=== PATIENT | female | born 1970 | race Caucasian/White ===

== ENCOUNTER 2023-04-11 12:18 | Outpatient (REF) | payer MEDICARE, MEDICAID, SELFPAY ==
[2023-04-11 21:08] LABS: TSH (W/Ref FT4) 0.57 uIU/mL (0.36-3.74)
== END 2023-04-11 12:19 | disposition home or self-care (01) ==
LOC: LBN 12:18
PROVIDERS: Visit Provider Nurse Practitioner Family
DX: E03.9 Hypothyroidism, unspecified (principal)
CPT/HCPCS: 84443

== ENCOUNTER 2023-04-13 17:41 | Emergency (ER) | payer MEDICARE, MEDICAID, SELFPAY ==
[2023-04-13 17:45] VITALS: BP 121/83; PULSE 70; RESP 18; TEMP 36.2; O2SAT 97
--- NOTE | 2023-04-13 18:16 | ED.GENADUL_ITS ---
Discharge Plan Disposition Patient Disposition: Home Condition: Stable Discharge Details Clinical Impression: Difficulty refilling prescriptions Primary Care Provider: None,None ED Provider: Jason Harrison Home Meds and New Rx's Prescriptions: New levothyroxine 75 mcg capsule 75 mcg PO DAILY Qty: 30 0RF Continued quetiapine [Seroquel] 400 mg tablet 800 mg PO BID paroxetine HCl [Paxil] 20 mg tablet 20 mg PO DAILY gabapentin 300 mg capsule 300 mg PO BID bupropion HCl [Wellbutrin XL] 300 mg tablet extended release 24 hr 300 mg PO QAM omeprazole 40 mg capsule,delayed release(DR/EC) 40 mg PO BID levothyroxine 75 mcg capsule 75 mcg PO DAILY Qty: 30 1RF clonidine HCl 0.1 mg tablet 0.1 mg PO DAILY Patient Comments: Approximated dose and name. Patient is unsure. Discharge Instructions Instructions: Levothyroxine (By mouth) Additional Instructions: You were seen in the emergency department for your request for refill on your levothyroxine I have sent a refill for a month supply to [facility] in [place]. I have placed you on a list to establish primary care in the area. Please call and follow-up if you have not heard, have also forwarded your chart to care management for help with establishing care in the area. Referrals: Care Management [Provider Group] [facility] [Provider Group] Medical Decision Making This dictation utilizes [id number] dictation software and may contain unedited grammatical errors. 53 y/o M presents to ED today with a chief complaint of request for medication refill. Patient ran out of levothyroxine 5 days ago, doesn't have PCP established in the area. Patients' medical history: hypothyroidism. Family and social history: noncontributory. Pertinent exam findings / vital signs include benign respiratory status, no physical complaints. Diagnostic studies of: -none. Interventions of: - outpatient Rx, refer to establish PCP. ED Course/Assessment/Plan: Refilled levothyroxine 1 month supply to [facility], referred patient to PCP intake list. Findings not consistent with medical emergency. Disposition of Difficulty Refilling Prescriptions. Patient verbalized understanding of the plan and return to ED criteria and engaged in shared decision making. Medical Records Medical records reviewed: Yes I reviewed the patient's medical records. HPI General Date/Time Provider Initiated Documentation: 04/13/23 18:07 . HPI Narrative: 53 year-old female presents to ED today by POV/ambulating with a chief complaint of request for refill of Levothyroxine- states just moved to the area - has been out of this medicine for 5 days. Quality described as no other complaints, no radiation to fever, cough, shortness of breath, chest pain. Severity is described as 0/10. Palliating factors include nothing specific. Provoking factor s include nothing specific. Events leading up to the incident/Associated Symptoms: Patient would like help in establishing primary care. Patient not anticoagulated. Related Data Home Medications Medication Instructions Recorded Confirmed bupropion HCl 300 mg 24 hr tablet, 300 mg PO QAM 04/11/23 04/13/23 extended release (Wellbutrin XL) gabapentin 300 mg capsule 300 mg PO BID 04/11/23 04/13/23 omeprazole 40 mg capsule,delayed 40 mg PO BID 04/11/23 04/13/23 release paroxetine HCl 20 mg tablet (Paxil) 20 mg PO DAILY 04/11/23 04/13/23 quetiapine 400 mg tablet (Seroquel) 800 mg PO BID 04/11/23 04/13/23 clonidine HCl 0.1 mg tablet 0.1 mg PO DAILY 04/13/23 04/13/23 levothyroxine 75 mcg capsule 75 mcg PO DAILY #30 caps 04/13/23 04/13/23 levothyroxine 75 mcg capsule 75 mcg PO DAILY hypothyroidism #30 04/13/23 caps Previous Rx's Medication Instructions Recorded levothyroxine 75 mcg capsule 75 mcg PO DAILY #30 caps 04/13/23 levothyroxine 75 mcg capsule 75 mcg PO DAILY hypothyroidism #30 04/13/23 caps Allergies Allergy/AdvReac Type Severity Reaction Status Date / Time No Known Allergies Allergy Verified 04/11/23 11:20 General Stated Complaint: RX Refill TOM: 5 Review of Systems All systems reviewed & are unremarkable except as noted in HPI and below PFSH All Active Problems (Updated 04/13/23 @ 18:20 by ANGEL Kearney) Difficulty refilling prescriptions (Acute) Social History Smoking risk assessment performed?: No Do you feel safe at home: Yes Do you feel safe in your relationship?: Yes Exam Narrative Exam Narrative: GENERAL APPEARANCE: Well-nourished, non-toxic, awake and alert, atraumatic, no acute distress. SKIN: Warm, pink, dry, intact, without rashes/lesions/ulcerations. HEAD: Normocephalic, atraumatic, normal hair distribution for gender/age. EYES: Pupils PERRLA, EOMs intact without nystagmus, normal conjunctiva, no exudates on lids/lashes. ENT: Nares patent, no circumoral cyanosis, no facial swelling NECK: Supple, trachea midline, painless cervical ROM. LUNGS/CHEST: Non-labored respirations, normal A/P diameter, symmetrical expansion, no chest wall deformity HEART (CV/PV): No peripheral edema, no JVD. ABDOMEN: Soft, non-distended, no guarding. MSK: Normal ROM, no swelling/deformity to bilateral UEs or LEs, moving all extremities without weakness, no cyanosis, spine midline without tenderness, normal curvature. NEURO: Mental Status AAOx4 - alert to person, place, time, events No facial droop, no forehead involvement. Motor: No focal weakness - strength 5/5 in bilateral UEs and LEs, proximal and distal, symmetric. Sensory: sensation intact to light touch globally. Gait normal: patient ambulated without ataxia into ED room. PSYCH: euthymic, cooperative, pleasant, appropriate speech Course Vital Signs Vital signs: Vital Signs Temperature 36.2 C L 04/13/23 17:45 Pulse 70 04/13/23 17:45 Respiratory Rate 18 04/13/23 17:45 Blood Pressure 121/83 04/13/23 17:45 Pulse Oximetry 97 04/13/23 17:45 Temperature 36.2 C L 04/13/23 17:45 Temperature Source Tympanic 04/13/23 17:45 Pulse 70 04/13/23 17:45 Respiratory Rate 18 04/13/23 17:45 Blood Pressure 121/83 04/13/23 17:45 Pulse Oximetry 97 04/13/23 17:45 Oxygen Delivery Method Room Air 04/13/23 17:45 Oxygen Flow Rate 0 04/13/23 17:45
--- NOTE | 2023-04-13 18:28 | NUR.NOTE ---
Referral given to [facility] to help Establish Primary Care as soon as possible
== END 2023-04-13 18:30 | disposition home or self-care (01) ==
PROVIDERS: Emergency Provider Physician Assistant
DX: Z76.0 Encounter for issue of repeat prescription (principal); E03.9 Hypothyroidism, unspecified
CPT/HCPCS: 99281

== ENCOUNTER 2023-06-22 11:51 | Emergency (ER) | payer OTHER, SELFPAY ==
[2023-06-22 11:57] VITALS: BP 133/89; PULSE 65; RESP 16; TEMP 36.5; O2SAT 96
--- NOTE | 2023-06-22 12:00 | RT.EKG_ITS ---
APPROVED REPORT Exam: Resting ECG Reason for Exam: fatigue Patient Location: E HR:58 bpm ECG Measurements Heart Rate 58 AXIS RI 172 P 30 QRSd 101 QRS -27 QT 429 T -17 QTc 421 Conclusion Sinus bradycardia 58 normal axis no stemi
[2023-06-22 12:20] LABS: Abs Immature Grans 0.01 10^3/uL (0.0-0.06); Absolute Basophil Count 0.06 10^3/uL (0.0-0.2); Absolute Eosinophil Count 0.29 10^3/uL (0.0-0.7); Absolute Lymphocyte Count 2.23 10^3/uL (1.2-3.4); Absolute Monocyte Count 0.33 10^3/uL (0.1-0.8); Absolute Neutrophil Count 2.25 10^3/uL (1.2-6.7); Basophils % 1.2; Eosinophils % 5.6; HCT 36.9 % (36.0-46.0); HGB 12.9 g/dL (11.2-15.7); Immature Grans % 0.2; Lymphocytes % 43.1; MCV 89 fL (80-95); MPV 8.4 fL (8.0-11.0); Monocytes % 6.4; Neutrophils % 43.5; Platelet Count 275 10^3/uL (130-400); RBC 4.16 10^6/uL (3.93-5.22); RDW 12.4 % (11.7-14.6); RDW-SD 40.2 fL; WBC 5.17 10^3/uL (4.4-10.8)
[2023-06-22 12:45] LABS: ALT 29 U/L (14-59); AST 33 U/L (15-37); Alkaline Phosphatase 114 U/L (46-116); Anion Gap 9.8 mmol/L (3-11); BUN 8 mg/dL (7-18); Bilirubin, Total 0.2 mg/dL (0.2-1.0); CO2 26.2 mmol/L (21.0-32.0); CREATININE 1.1 mg/dL (0.55-1.02); Calcium 9.4 mg/dL (8.5-10.1); Chloride 105 mmol/L (98-107); Estimated GFR 60.46 (mL/min/1.73m2); Glucose 103 mg/dL (74-106); Potassium 3.9 mmol/L (3.5-5.1); Sodium 141 mmol/L (136-145); TSH (W/Ref FT4) 0.57 uIU/mL (0.36-3.74); Total Protein 7.7 g/dL (6.4-8.2)
[2023-06-22 13:08] VITALS: BP 133/89; PULSE 65; RESP 16; TEMP 36.5
--- NOTE | 2023-06-22 13:24 | ED.GENADUL_ITS ---
Discharge Plan Disposition Patient Disposition: Home Condition: Stable Discharge Details Clinical Impression: Abdominal pain Primary Care Provider: [facility] Provider: Raina Martini Home Meds and New Rx's Prescriptions: No Action quetiapine [Seroquel] 400 mg tablet 800 mg PO DAILY paroxetine HCl [Paxil] 20 mg tablet 20 mg PO DAILY gabapentin 300 mg capsule 300 mg PO BID bupropion HCl [Wellbutrin XL] 300 mg tablet extended release 24 hr 300 mg PO QAM omeprazole 40 mg capsule,delayed release(DR/EC) 40 mg PO BID levothyroxine 75 mcg tablet 75 mcg PO DAILY Qty: 30 1RF levothyroxine 75 mcg capsule 75 mcg PO DAILY Qty: 30 0RF Patient Comments: last took 5 days ago, ran out of prescription Discharge Instructions Instructions: Abdominal Pain (ED) Additional Instructions: Lab work today is unremarkable. you can take Tums or Pepcid for symptoms. Please follow-up with [facility], you can walk over there now to get established for primary care and get refills. HPI General Date/Time Provider Initiated Documentation: 06/22/23 12:01 . Limitations to Documentation: no limitations . Information obtained by: patient . HPI Narrative: 53-year-old female with past medical history of depression, hypothyroidism presents for evaluation for medication refill. She has previously visited the e mergency department for medication refill for her Synthroid, but still has not followed up with primary care. She states that she has not had her Synthroid for the last 5 days. She does have her other medications. She reports ports some mild abdominal pain. Generalized. Not acute, not severe. Not associated with nausea vomiting or diarrhea. Related Data Home Medications Medication Instructions Recorded Confirmed bupropion HCl 300 mg 24 hr tablet, 300 mg PO QAM 04/11/23 06/22/23 extended release (Wellbutrin XL) gabapentin 300 mg capsule 300 mg PO BID 04/11/23 06/22/23 omeprazole 40 mg capsule,delayed 40 mg PO BID 04/11/23 06/22/23 release paroxetine HCl 20 mg tablet (Paxil) 20 mg PO DAILY 04/11/23 06/22/23 quetiapine 400 mg tablet (Seroquel) 800 mg PO DAILY 04/11/23 06/22/23 levothyroxine 75 mcg capsule 75 mcg PO DAILY hypothyroidism #30 04/13/23 06/22/23 caps levothyroxine 75 mcg tablet 75 mcg PO DAILY #30 tabs 04/14/23 Previous Rx's Medication Instructions Recorded levothyroxine 75 mcg capsule 75 mcg PO DAILY hypothyroidism #30 04/13/23 caps levothyroxine 75 mcg tablet 75 mcg PO DAILY #30 tabs 04/14/23 Allergies Allergy/AdvReac Type Severity Reaction Status Date / Time No Known Allergies Allergy Verified 06/22/23 11:55 General Stated Complaint: Nausea/Vomit/Diar TOM: 4 Exam Narrative Exam Narrative: Review of Systems: All systems reviewed & are unremarkable except as noted in HPI and below Well-developed, no acute distress NCAT PERRL, normal conjunctiva RRR Unlabored respiratory effort, clear bilaterally Nondistended abdomen , nontender Extremities w/o deformity, no cyanosis, no edema No rashes or lesions. no focal neurologic deficits Appropriate mood and affect Course Vital Signs Vital signs: Vital Signs Temperature 36.5 C 06/22/23 11:57 Pulse 65 06/22/23 11:57 Respiratory Rate 16 06/22/23 11:57 Blood Pressure 133/89 06/22/23 11:57 Pulse Oximetry 96 06/22/23 11:57 Temperature 36.5 C 06/22/23 13:08 Temperature Source Tympanic 06/22/23 13:08 Pulse 65 06/22/23 13:08 Respiratory Rate 16 06/22/23 13:08 Respiratory Effort Normal, Non-Labored 06/22/23 11:58 Blood Pressure 133/89 06/22/23 13:08 Blood Pressure Position Sitting 06/22/23 11:57 Pulse Oximetry 96 06/22/23 11:57 Oxygen Delivery Method Room Air 06/22/23 13:08 Oxygen Flow Rate 0 06/22/23 11:57 Pain Level 0 06/22/23 13:08 Lab/Test Results Lab/Test Results: Laboratory Tests Range/Units 06/22/23 12:10 WBC (4.4-10.8) 10^3/uL 5.17 RBC (3.93-5.22) 10^6/uL 4.16 Hgb (11.2-15.7) g/dL 12.9 Hct (36.0-46.0) % 36.9 MCV (80-95) fL 89 MCH (27.0-33.0) pg 31.0 MCHC (32.0-36.0) % 35.0 RDW (11.7-14.6) % 12.4 Plt Count (130-400) 10^3/uL 275 MPV (8.0-11.0) fL 8.4 Immature Gran % 0.2 Neutrophils % 43.5 Lymphocytes % 43.1 Monocytes % 6.4 Eosinophils % 5.6 Basophils % 1.2 Nucleated RBC % (0.0-0.3) % 0.0 Absolute Neutrophils (1.2-6.7) 10^3/uL 2.25 Absolute Lymphocytes (1.2-3.4) 10^3/uL 2.23 Absolute Monocytes (0.1-0.8) 10^3/uL 0.33 Absolute Eosinophils (0.0-0.7) 10^3/uL 0.29 Absolute Basophils (0.0-0.2) 10^3/uL 0.06 Sodium (136-145) mmol/L 141 Potassium (3.5-5.1) mmol/L 3.9 Chloride (98-107) mmol/L 105 Carbon Dioxide (21.0-32.0) mmol/L 26.2 Anion Gap (3-11) mmol/L 9.8 BUN (7-18) mg/dL 8 Creatinine (0.55-1.02) mg/dL 1.1 H Est GFR (CKD-EPI 2020) (mL/min/1.73m2) 60.46 Glucose (74-106) mg/dL 103 Calcium (8.5-10.1) mg/dL 9.4 Total Bilirubin (0.2-1.0) mg/dL 0.2 AST (15-37) U/L 33 ALT (14-59) U/L 29 Alkaline Phosphatase (46-116) U/L 114 Total Protein (6.4-8.2) g/dL 7.7 Albumin (3.4-5.0) g/dL 4.0 TSH (0.36-3.74) uIU/mL 0.57 Medical Decision Making Emergent evaluation of medication refill patient is endorsing some mild abdominal pain, though her examination is benign and reassuring. She is not having any other subsequent symptoms. Her EKG demonstrates some mild bradycardia sinus 58. She has no other signs or symptoms concerning for severe hypothyroidism or myxedema coma. Her TSH was within normal limits today. The patient has again been encouraged to go directly to [facility] for primary care and has been advised that the emergency department is not her resource for medication refills. Medical Records Medical records reviewed: Yes I reviewed the patient's medical records. Lab Data Lab results reviewed: Yes I reviewed the patient's lab results. Quality:SDOH Health Related Social Needs: No Data to Display PFSH All Active Problems Abdominal pain (Acute) Social History Smoking/Tobacco Use Status: Current every day Tobacco Type: cigarettes Smoking risk assessment performed?: Yes Alcohol Intake: current Alcohol Intake frequency: holidays/special occasions only Drug use: Never Substance use type: does not use Housing: apartment Do you feel safe at home: Yes Do you feel safe in your relationship?: Yes
== END 2023-06-22 13:14 | disposition home or self-care (01) ==
PROVIDERS: Emergency Provider Emergency Medicine
DX: R10.84 Generalized abdominal pain (principal); E03.9 Hypothyroidism, unspecified; R00.1 Bradycardia, unspecified
CPT/HCPCS: 36415; 80053; 93005; 99284; 84443; 85025; 93010; 99283

== ENCOUNTER 2023-06-30 09:30 | Outpatient (CLI) | payer OTHER, MEDICAID, SELFPAY ==
[2023-06-30 12:16] LABS: Hemoglobin A1C 5.9 % (<5.7)
[2023-06-30 12:24] LABS: Calculated LDL 146 mg/dL (<100); Cholesterol 251 mg/dL (<200); HDL Cholesterol 55 mg/dL (40-60); Triglyceride 250 mg/dL (<150)
== END 2023-06-30 09:31 | disposition home or self-care (01) ==
LOC: LOS 09:31
PROVIDERS: PCP Nurse Practitioner Family; Referring Provider Nurse Practitioner Family; Visit Provider Nurse Practitioner Family
DX: E03.9 Hypothyroidism, unspecified (principal); F32.89 Other specified depressive episodes; R73.09 Other abnormal glucose; E66.9 Obesity, unspecified
CPT/HCPCS: 36415; 80061; 83036

== ENCOUNTER 2023-07-03 11:08 | Outpatient (REF) | payer OTHER, SELFPAY | END 2023-07-03 11:09 | disposition home or self-care (01) | LOC: LBN 11:08 | PROVIDERS: PCP Nurse Practitioner Family; Visit Provider Family Medicine | DX: N39.0 Urinary tract infection, site not specified (principal); R31.9 Hematuria, unspecified | CPT/HCPCS: 87077; 87086; 87186 ==